=== PATIENT | female | born 1980 | race Caucasian/White ===

== ENCOUNTER 2022-03-13 18:29 | Emergency (ER) | payer MEDICAID ==
[~2022-03-13] VITALS: Ht 167.6 cm; Wt 91.0 kg
[2022-03-13] MEDS ORDERED: HYDROCODONE/ACETAMINOPHEN 10/325MG TABLET PO ONE (19:15)
[2022-03-13] MEDS ORDERED: IBUPROFEN 800MG TABLET PO ONE (19:15)
[2022-03-13] MEDS ORDERED: IBUP-2030 MT (21:56)
[2022-03-13 22:30] VITALS: BP 160/95
== END 2022-03-13 22:30 | disposition home or self-care (01) ==
LOC: ER 18:29
DX: S09.8XXA Other specified injuries of head, initial encounter (principal); S80.01XA Contusion of right knee, initial encounter; Y08.89XA Assault by other specified means, initial encounter; Y93.89 Activity, other specified; Y92.89 Other specified places as the place of occurrence of the external cause; Y99.8 Other external cause status
CPT/HCPCS: 73562; 73630; 99284